=== PATIENT | male | born 1960 | race American Indian/Alaskan Native ===

== ENCOUNTER 2019-03-07 10:30 | Emergency (ER) | payer OTHER ==
[2019-03-07 10:47] VITALS: BP 152/89; RESP 18; TEMP 97.8; O2SAT 99
--- NOTE | 2019-03-07 11:20 | ED PDOC ---
Arrival/HPI - General Chief Complaint: Lower Extremity Problem/Injury Time Seen by Provider: 03/07/19 10:45 Historian: Patient - History of Present Illness Narrative History of Present Illness (Text): 03/07/19 13:10 58 y/o male with PMH of hypertension presents to the ED c/o left foot pain x 3 days. States the pain began after wearing sneakers for a long period of time. Associated swelling over the medial foot and 1st MTP joint. Has not taken any medication for pain. No recent changes in diet. Denies trauma/injury, numbness, weakness, paresthesias, open wounds, skin redness, increased warmth, or any other associated symptoms. Past Medical History - Provider Review Nursing Documentation Reviewed: Yes - Infectious Disease Hx of Infectious Diseases: None - Cardiac Hx Hypertension: Yes - Psychiatric Hx Substance Use: No - Anesthesia Hx Anesthesia: No Hx Anesthesia Reactions: No Hx Malignant Hyperthermia: No Family/Social History - Physician Review Nursing Documentation Reviewed: Yes Family/Social History: No Known Family HX Smoking Status: Never Smoked Hx Alcohol Use: No Hx Substance Use: No Allergies/Home Meds Allergies/Adverse Reactions: Allergies shrimp Allergy (Severe, Verified 03/09/19 08:14) hives Home Medications: Home Meds Medication Instructions Recorded Confirmed Valsartan/Hydrochlorothiazide 1 tab PO ONCE 03/07/19 03/07/19 [Diovan Hct 320-25 mg Tablet] Review of Systems - Review of Systems Constitutional: Normal. absent: Fevers Eyes: Normal. absent: Vision Changes ENT: Normal. absent: Sore Throat, Sinus Congestion Respiratory: Normal. absent: SOB Cardiovascular: Normal. absent: Chest Pain, Palpitations Gastrointestinal: Normal. absent: Abdominal Pain, Nausea, Vomiting Musculoskeletal: Other (left foot pain) Skin: Other (left medial foot swelling). absent: Rash, Cellulitis Hemo/Lymphatic: Normal Psychiatric: Normal Physical Exam Vital Signs Reviewed: Yes Vital Signs Temp Pulse Resp BP Pulse Ox 03/07/19 10:43 97.8 F 64 18 152/89 H 99 Temperature: Afebrile Blood Pressure: Hypertensive Pulse: Regular Respiratory Rate: Normal Appearance: Positive for: Well-Appearing, Non-Toxic, Comfortable Pain Distress: None Mental Status: Positive for: Alert and Oriented X 3 - Systems Exam Head: Present: Atraumatic, Normocephalic Pupils: Present: PERRL Extroacular Muscles: Present: EOMI Conjunctiva: Present: Normal Mouth: Present: Moist Mucous Membranes Neck: Present: Normal Range of Motion. No: Meningeal Signs Respiratory/Chest: Present: Clear to Auscultation, Good Air Exchange. No: Respiratory Distress, Accessory Muscle Use Cardiovascular: Present: Regular Rate and Rhythm, Normal S1, S2, Peripheal Pulses Present Back: Present: Normal Inspection. No: CVA Tenderness Upper Extremity: Present: Normal Inspection, Normal ROM, NORMAL PULSES, Neurovascularly Intact, Capillary Refill < 2s. No: Cyanosis, Edema, Temperature Abnormalties Lower Extremity: Present: Normal Inspection, NORMAL PULSES, Normal ROM, Tenderness (left foot 1st MTP joint), Swelling (left foot 1st MTP joint), Erythema (mild erythema over left foot 1st mtp joint ), Temperature Abnormalties (very mild warmth over left foot 1st mtp joint ), Neurovascularly Intact, Capillary Refill < 2 s. No: Edema, Deformity Neurological: Present: GCS=15, CN II-XII Intact, Speech Normal, Motor Func Grossly Intact, Normal Sensory Function Skin: Present: Warm, Dry. No: Rashes Psychiatric: Present: Alert, Oriented x 3, Normal Insight, Normal Concentration, Normal Affect, Normal Mood Medical Decision Making ED Course and Treatment: 03/07/19 11:17 Initial Plan: * Left Ankle XR * Left Foot XR * Venous Duplex Left Leg * Toradol 13:07 Venous duplex prelim read negative for DVT Left ankle and foot xrays read as negative for acute fracture or dislocation Patient reports improvement in symptoms with medication Advised orthopedic and PMD followup. Left foot and ankle wrapped in MIRIAM wrap by me. Discussed possibility of gout diagnosis with patient. Pt given prescriptions for antiinflammatories as well as antibiotics for possibility of cellulitis secondary to patient leaving to travel early next week. Diagnostic testing results and plan of care discussed with patient. Strict instructions given regarding prescription use, importance of followup, and signs/symptoms to return to ER including numbness, weakness, paresthesias, worsening pain, or any other new/worsening symptoms. Pt verbalized understanding of discussion. Patient is A&Ox3, ambulating with steady gait, with vital signs stable for discharge. - RAD Interpretation Narrative RAD Interpretations (Text): 03/07/19 12:22 Left Ankle XR: FINDINGS: BONES: No fracture. Plantar calcaneal spur noted. JOINTS: Normal. No osteoarthritis. Ankle mortise maintained. Talar dome intact SOFT TISSUES: Normal. OTHER FINDINGS: None. IMPRESSION: Plantar calcaneal spur. Otherwise unremarkable examination. 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 Ulcer: No History Surgical Site Infection Following: None - Disposition Have Diagnosis and Disposition been Completed?: Yes Diagnosis: Foot pain, left Disposition: HOME/ ROUTINE Disposition Time: 15:40 Patient Plan: Discharge Condition: IMPROVED Discharge Instructions (ExitCare): Gout, Lifestyle Changes to Manage Gout, Low Purine Diet Additional Instructions: Ibuprofen every 8 hours with food Keflex every 6 hours for 1 week Followup with orthopedics within 2 days Followup with primary doctor within 2 days Return to ER with any new/worsening symptoms Prescriptions: Cephalexin [Keflex] 500 mg PO QID 7 Days #28 capsule Ibuprofen [Motrin Tab] 800 mg PO Q8 7 Days #21 tab Referrals: [facility] [Outside] - Follow up with primary Lorrie Kirkpatrick MD [Staff Provider] - Follow up with primary Sukhi Musa MD [Primary Care Provider] - Follow up with primary Forms: [facility] ([place]ese), WORK NOTE
--- NOTE | 2019-03-07 11:59 | RAD ---
Date of service: 03/07/2019 PROCEDURE: Left Ankle Radiographs. HISTORY: medial pain, swelling COMPARISON: None available. TECHNIQUE: 3 views obtained. FINDINGS: BONES: No fracture. Plantar calcaneal spur noted. JOINTS: Normal. No osteoarthritis. Ankle mortise maintained. Talar dome intact SOFT TISSUES: Normal. OTHER FINDINGS: None. IMPRESSION: Plantar calcaneal spur. Otherwise unremarkable examination.
--- NOTE | 2019-03-07 14:48 | RAD ---
Date of service: 03/07/2019 PROCEDURE: Left Foot Radiographs. HISTORY: medial pain, swelling COMPARISON: None. TECHNIQUE: 3 views obtained. FINDINGS: BONES: Normal. No fracture. JOINTS: Normal. SOFT TISSUES: Normal. OTHER FINDINGS: None. IMPRESSION: Normal left foot radiographs.
[2019-03-07 16:28] VITALS: PULSE 74
--- NOTE | 2019-03-09 09:24 | US ---
PROCEDURE: Left lower extremity venous US HISTORY: Leg pain and swelling. Evaluate for DVT. PHYSICIAN(S): Romie Mayo MD. TECHNIQUE: Duplex sonography and color-flow Doppler with graded compression were used to evaluate the deep venous system of the left lower extremity. FINDINGS: The visualized deep venous system of the left lower extremity is sonographically normal and compressible. Normal wave forms and augmentation are seen. There is no sonographic evidence for deep venous thrombosis in the visualized segments of the left lower extremity. IMPRESSION: 1. No sonographic evidence for deep venous thrombosis in the visualized segments of the left lower extremity.
== END 2019-03-07 16:27 | disposition home or self-care (01) ==
LOC: ED 10:30 → MERGE 10:30 → ED 16:27
DX: M79.672 Pain in left foot (principal); I10 Essential (primary) hypertension
CPT/HCPCS: 73610; 73630; 93971; 96372; 99283; J1885